=== PATIENT | male | born 1945 | race Caucasian/White ===

== ENCOUNTER → 2022-09-08 | Outpatient (REF) | payer OTHER | LOC: M LAB REF 13:34 | PROVIDERS: ATTEND Ophthalmology | DX: C44.1022 Unspecified malignant neoplasm of skin of right lower eyelid, including canthus (principal) ==

== ENCOUNTER → 2023-03-18 | Outpatient (CLI) | payer OTHER | LOC: M LAB 11:36 | PROVIDERS: ATTEND Nurse Practitioner Family | DX: R82.90 Unspecified abnormal findings in urine (principal); B95.61 Methicillin susceptible Staphylococcus aureus infection as the cause of diseases classified elsewhere ==

== ENCOUNTER → 2024-04-29 | Outpatient (CLI) | payer OTHER | LOC: M LAB 13:12 | PROVIDERS: ATTEND Internal Medicine | DX: Z11.8 Encounter for screening for other infectious and parasitic diseases (principal) ==